=== PATIENT | male | born 1945 | race Caucasian/White ===

== ENCOUNTER → 2017-10-01 09:08 | Outpatient (CLI) | payer MEDICARE, SELFPAY ==
[2017-10-01 10:30] LABS: AST(SGOT) 20 U/L (15-37); Alanine Aminotransfer ALT/SGPT 24 U/L (16-61); Albumin, Serum 3.8 g/dL (3.2-5.0); Alkaline Phosphatase 68 U/L (45-117); Bilirubin, Direct 0.17 mg/dL (0.00-0.30); Cholesterol 151 mg/dL (200); Globulin 3.4 g/dL (2.2-4.2); High Density Lipoprotein 54 mg/dL; Protein, Total 7.2 g/dL (6.4-8.2); Triglycerides 121 mg/dL; Very Low Density Lipoprotein 24 mg/dL (5-40)
[2017-10-01 10:33] LABS: PSA,Total- Diagnostic 4.05 ng/mL (0.0-4.0)
== END ==
PROVIDERS: Family Provider Family Medicine; PCP Family Medicine; Visit Provider Internal Medicine Cardiovascular Disease
DX: E78.5 Hyperlipidemia, unspecified (principal); N42.89 Other specified disorders of prostate; R97.20 Elevated prostate specific antigen [PSA]; Z79.899 Other long term (current) drug therapy
CPT/HCPCS: 36415; 80061; 80076; 84153

== ENCOUNTER → 2018-05-06 08:40 | Outpatient (CLI) | payer MEDICARE, SELFPAY ==
[2018-05-06 10:39] LABS: AST(SGOT) 17 U/L (15-37); Alanine Aminotransfer ALT/SGPT 26 U/L (16-61); Albumin, Serum 3.7 g/dL (3.2-5.0); Alkaline Phosphatase 73 U/L (45-117); Bilirubin, Direct 0.15 mg/dL (0.00-0.30); Cholesterol 198 mg/dL (200); Globulin 3.6 g/dL (2.2-4.2); High Density Lipoprotein 62 mg/dL; Protein, Total 7.3 g/dL (6.4-8.2); Triglycerides 126 mg/dL; Very Low Density Lipoprotein 25 mg/dL (5-40)
--- OUTSIDE RECORDS SUMMARY | 2018-07-01 14:01 | XMS RPT_ITS ---
:1945 Author Organization OHIP Care Team Providers Name Role Phone Lloyd Dumontril Attending Unavailable Julia, [place] Referring Unavailable Dorian Esposito Primary Care Unavailable Silvana Contreras Consulting Unavailable Sara Jiménez Attending Unavailable Ingris Medina Attending Unavailable Dorian Esposito Referring Unavailable Dorian Esposito Primary Care Unavailable Julia, Alen Attending Unavailable Julia, [place] Referring Unavailable Dorian Esposito Primary Care Unavailable PROBLEMS PROBLEMS DATE TYPE CONDITION / CODE ATTENDING STATUS SOURCE 10/08/2017 Unknown I25.10 - Carol, Active [place] Atherosclerotic heart [facility] coronary artery Repository without angina pectoris / I25.10(ICD-10) 10/01/2017 Unknown E78.5 - Alen Dumont Active [place] Hyperlipidemia, Community unspecified / Hospital E78.5(ICD-10) Repository 10/01/2017 Unknown Z79.899 - Other long Julia, Alen Active [place] term (current) drug Community therapy / Hospital Z79.899(ICD-10) Repository PROCEDURES PROCEDURES No Procedure Records FoundRESULTS RESULTS LIVER PROFILE Collected: 05/06/2018 Status: F Source: [place] 8:49 AM [facility] REPOSITORY TYPE CODE TESTS RESULT OUT OF RANGE REFERENCE UNITS LAB L501.1500 6.4-8.2 g/dL Normal T PROT 7.3 LAB L501.1800 3.2-5.0 g/dL Normal ALB 3.7 LAB L501.1950 2.2-4.2 g/dL Normal GLOB 3.6 LAB L501.4100 15-37 U/L Normal AST 17 LAB L501.4305 45-117 U/L Normal ALK P 73 LAB L501.4405 16-61 U/L Normal ALT 26 LAB L501.4600 0.20-1.00 mg/dL Normal T BILI 0.60 LAB L501.4700 0.00-0.30 mg/dL Normal D BILI 0.15 Performed By: #### L500.3400, L500.4100 #### [facility] [address] [place], [place], [address] LIPID PROFILE Collected: 05/06/2018 Status: F Source: [place] 8:49 [facility] REPOSITORY TYPE CODE TESTS RESULT OUT OF RANGE REFERENCE UNITS LAB L501.4900 200 mg/dL Normal CHOL 198 Result Comment: <200 mg/dL Desirable 200-240 mg/dL Borderline >240 mg/dL High Risk LAB L501.5000 mg/dL Normal TRIG 126 Result Comment: The drugs N-Acetylcysteine and Metamizole may falsely depress this assay. Serum Triglycerides Reference Interval Normal <150 mg/dL Borderline high 150 - 199 mg/dL High 200 - 499 mg/dL Very High > or = 500 mg/dL LAB L501.6400 mg/dL Normal HDL 62 Result Comment: The drugs N-Acetylcysteine and Metamizole may falsely depress this assay. Reference Range HDL <40 mg/dL Low HDL Cholesterol HDL >or= 60 mg/dL High HDL Cholesterol LAB L501.6500 0-130 mg/dL Normal LDL 111 LAB L501.6600 5-40 mg/dL Normal VLDL 25 Performed By: #### L500.3400, L500.4100 #### [facility] [address] [place], [address] CARDIOLOGY VISIT Observed: 10/08/2017 Status: F Source: [place] REPORT 4:16 PM [facility] REPOSITORY [place] [facility] [address] [place] [address] OFFICE VISIT Date of Service: 10/08/17 MR#: [id number] Acct: [id number] Name: RAKESH TAVAREZ Rep #: [id number] : 1945 Provider: Ingris Medina Age/Sex: 72/M Location: [facility] Status: Signed HPI HPI Details: RAKESH TAVAREZ, is a 72 M who presents to the office today for a cardiovascular follow-up. He has a history of coronary artery disease with stenting to his LAD and RCA. He also has a history of frequent asymptomatic PVCs which compromised 28% of his scan. He did follow with EP for this. He did have an EP study and no significant findings were noted. EKG today demonstrates sinus rhythm with a heart rate of 65. From a cardiac standpoint, patient is doing well. He does not have any chest discomfort/heaviness/tightness. His exercise tolerance is stable for his age. He does not have any worsening symptoms of shortness of breath. He denies any PND. He does not have any orthopnea. He does not have any symptoms of congestive heart failure. He does not have any palpitations that he is aware of. He does not have any lightheadedness or dizziness. He does not have any near-syncope or syncope. He does not have any lower extremity edema. He does not have any symptoms of claudication. Intake Vital Signs10/08/17 Height 5 ft 9 in 10/08/17 Weight: 225 lb 10/08/17 Body Mass Index (BMI) 33.2 10/08/17 Blood Pressure 138/70 Intake Visit Reasons: 6 M FU Box Feeder Required: No Accompanied by: Is patient in pain?: No Allergies atorvastatin [From Lipitor] Adverse Reaction (Intermediate, Verified 10/01/17 12:30) Myalgias Medications amlodipine 10 mg tablet 10 mg PO QDAY #90 tab 07/15/17 [Rx Confirmed 10/08/17] losartan 100 mg tablet 100 mg PO QDAY #90 tab 07/15/17 [Rx Confirmed 10/08/17] rosuvastatin 20 mg tablet 20 mg PO QDAY #90 tab 08/13/17 [Rx Confirmed 10/08/17] aspirin 81 mg tablet,delayed release 81 mg PO QDAY 10/01/17 [History Confirmed 10/08/17] nitroglycerin 0.4 mg sublingual tablet 0.4 mg SUBLINGUAL Q5M PRN 10/01/17 [History Confirmed 10/08/17] saw palmetto 1,000 mg capsule 1,000 mg PO BID 10/01/17 [History Confirmed 10/08/17] glucosamine sulfate 500 mg tablet 500 mg PO BID 10/08/17 [History Confirmed 10/08/17] magnesium oxide 400 mg capsule 400 mg PO QDAY cap 10/08/17 [History Confirmed 10/08/17] omega-3 fatty acids 1,000 mg capsule 1,000 mg PO QDAY 10/08/17 [History Confirmed 10/08/17] pyridoxine (vitamin B6) 50 mg capsule 50 mg PO QDAY 10/08/17 [History Confirmed 10/08/17] Ejection fraction %: 55 to 59 PFSH Medical History Hypertension (Chronic) Ventricular ectopic beat (Chronic) Mild pulmonary hypertension (Chronic) Nonrheumatic mitral valve insufficiency (Chronic) Non-rheumatic tricuspid valve insufficiency (Chronic) Old myocardial infarction (Chronic) Atherosclerotic heart disease of [place] coronary artery without angina pectoris (Chronic) Hyperlipidemia (Chronic) Surgical History H/O repair of rotator cuff (Resolved) H/O hernia repair (Resolved) H/O right coronary artery stent placement (Resolved) Family History Father CAD (coronary artery disease) Mother CAD (coronary artery disease) Social History Smoking Status: Never smoker alcohol intake: never substance use type: does not use caffeine: Yes Type: coffee Number of servings: 1 what type of physical activity do you participate in: other seatbelt use: always do you feel safe at home: Yes ROS Const Const: Negative for weakness, fatigue, fever(s) or headache(s) Eyes Eyes: Negative for blind spots, loss of peripheral vision or transient loss of vision ENT ENT: Negative for headache(s), dizziness, tinnitus or Nosebleed/epistaxis Cardio Chest Pain: No Palpitations: No Edema: None Muscle aches with walking: None Resp Respiratory: Negative for SOB with activity, SOB at rest, SOB orthopnea\SOB lying down or Cough GI GI: Negative nausea, vomiting, heartburn or vomiting blood/hematemesis : Negative for hematuria Musc Musc: Negative for muscle aches/ myalgia Neuro Neuro: Negative for weakness, headache(s), dizziness, near syncope, syncope, lightheadedness or orthostatic symptoms [place] Hematologic/Lymphatic: Negative for easy bleeding Endo Endo: Negative for fatigue Cardiology Exam Const Appearance: cooperative, no acute distress and well developed Orientation: alert, awake and oriented x3 Head Head: normocephalic and atraumatic Mouth: moist mucous membranes Eyes General: appearance normal, both eyes and all related structures Conjunctivae: conjunctivae normal Pupils: PERRL EOM: EOM intact bilaterally Neck Neck: normal visual inspection, no lymphadenopathy and no JVD Carotids: Negative bruit Neck Mass: Negative Neck mass Chest Chest inspection: normal inspection of the chest and symmetric chest movement Auscultation: Bilateral: Clear to Auscultation Cardio Palpation: normal PMI Rate: regular rate Rhythm: regular rhythm Heart sounds: S1 normal and S2 normal; negative rub, gallop or murmur GI GI: normal to inspection, soft, no hepatosplenomegaly and bowel sounds present; negative tender Neuro General: alert, awake, oriented x3, CN's II-XI intact bilaterally and moves all extremities Extremities Pulses: Normal: Right Posterior Tibial Pulse, Left Posterior Tibial Pulse, Right Radial Pulse, Left Radial Pulse Lower Extremity Edema: None: Bilateral Psych Psychological: normal affect Supplemental Info Echocardiogram in 2017 demonstrated an ejection fraction of 55%. Mild tricuspid insufficiency. Trivial aortic insufficiency. Stress test in 2016 was negative for ischemia at a high workload. Assessment AND Plan 1. Atherosclerosis of [place] coronary artery of [place] heart without angina pectoris I25.10 BUD Grant Stable, from a cardiac standpoint patient does not have any symptoms of angina. We recommend that they continue with current aggressive medical management and risk factor modification. Orders Orders: 2. Essential hypertension I10 Sudha - BUD Jerez Blood pressure is well controlled on current medications, we do not recommend any changes at this time. 3. Pure hypercholesterolemia E78.00; E78.0 Plan - BUD Jerez Recent lipid profile demonstrates total cholesterol 151, HDL 54, LDL 73. Will continue to monitor with routine labs. Will not make any adjustments. Patient Instructions - BUD Jerez Laboratory Tests Triglycerides 121 Cholesterol 151 LDL Cholesterol 73 HDL Cholesterol 54 4. Ventricular ectopic beat I49.3 Plan - BUD Jerez Patient has not had any symptomatic recurrence. We will continue to monitor. Plan Detail Additional Comments - BUD Jerez The above patient was discussed with Dr. Dumont, he agrees with plan of care. Thank you for allowing us to participate in patient's plan of care, if you have any questions please do not hesitate to call. This note was generated using a voice recognition system and there may be incorrect words, spelling or punctuation errors that were not noted when reviewing the office note prior to saving. 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 transplanted heart: [place] heart Essential hypertension I10 Hypertension type: essential hypertension Pure hypercholesterolemia E78.00; E78.0 Hyperlipidemia type: pure hypercholesterolemia Ventricular ectopic beat I49.3 Coding Level of Care Code Off vis,est,level 3 Diagnoses Atherosclerosis of [place] coronary artery of [place] heart without angina pectoris I25.10 [place] vs. transplanted heart: [place] heart Essential hypertension I10 Hypertension type: essential hypertension Pure hypercholesterolemia E78.00; E78.0 Hyperlipidemia type: pure hypercholesterolemia Ventricular ectopic beat I49.3 10/08/17 1406 <Electronically signed by Ingris FARRELL> Date Ingris FARRELL 10/08/17 1616<Electronically signed by Alen Dumont MD> Cosigner Signature: Date (if applicable) Alen Dumont MD CC: Dorian Esposito MD 12 LEAD EKG PERFORMED Observed: 10/08/2017 Status: F Source: [place] BY [facility] 11:23 AM [facility] REPOSITORY [facility] [address] [place] [address] 12 Lead EKG performed by [facility] 10/08/171121 MR#: [id number] Acct: [id number] Name: RAKESH TAVAREZ Rep #: [id number] : 1945 72 From: Ingris FARRELL Attending Dr: Ingris Medina Status: DEP AMB Ordering Dr: Ingris Medina Date: 10/08/17 [place] [facility] Sex: M C Admitted: [facility]/12 Lead EKG performed by [facility] ECG Report Interpretation Sinus Rhythm WITHIN NORMAL LIMITSElectronically signed on 10/09/2017 at 17:11 by Alen Dumont 10/09/17 1715 Date Ingris FARRELL CC: Dorian Esposito MD Date Dictated: 10/08/171121 Date Transcribed: 10/08/171121 In Home Tutor: JOSE Signed LIVER PROFILE Collected: 10/01/2017 Status: F Source: [place] 9:18 AM [facility] REPOSITORY Order Comment: Order Date: 03/08/17 Order Info: 0788-1 - *Hepatic Function Panel Order Info: [id number] - *Lipid Profile CC PCP Comments: 12 hours fasting, may have water. TYPE CODE TESTS RESULT OUT OF RANGE REFERENCE UNITS LAB L501.1500 6.4-8.2 g/dL Normal T PROT 7.2 LAB L501.1800 3.2-5.0 g/dL Normal ALB 3.8 LAB L501.1950 2.2-4.2 g/dL Normal GLOB 3.4 LAB L501.4100 15-37 U/L Normal AST 20 LAB L501.4305 45-117 U/L Normal ALK P 68 LAB L501.4405 16-61 U/L Normal ALT 24 LAB L501.4600 0.20-1.00 mg/dL Normal T BILI 1.00 LAB L501.4700 0.00-0.30 mg/dL Normal D BILI 0.17 Performed By: #### L500.3400 #### [facility] [address] [place], [address] LIPID PROFILE Collected: 10/01/2017 Status: F Source: [place] 9:18 AM [facility] REPOSITORY Order Comment: Order Date: 03/08/17 Order Info: 0788-1 - *Hepatic Function Panel Order Info: [id number] - *Lipid Profile CC PCP Comments: 12 hours fasting, may have water. TYPE CODE TESTS RESULT OUT OF RANGE REFERENCE UNITS LAB L501.4900 200 mg/dL Normal CHOL 151 Result Comment: <200 mg/dL Desirable 200-240 mg/dL Borderline >240 mg/dL High Risk LAB L501.5000 mg/dL Normal TRIG 121 Result Comment: The drugs N-Acetylcysteine and Metamizole may falsely depress this assay. Serum Triglycerides Reference Interval Normal <150 mg/dL Borderline high 150 - 199 mg/dL High 200 - 499 mg/dL Very High > or = 500 mg/dL LAB L501.6400 mg/dL Normal HDL 54 Result Comment: The drugs N-Acetylcysteine and Metamizole may falsely depress this assay. Reference Range HDL <40 mg/dL Low HDL Cholesterol HDL >or= 60 mg/dL High HDL Cholesterol LAB L501.6500 0-130 mg/dL Normal LDL 73 LAB L501.6600 5-40 mg/dL Normal VLDL 24 Performed By: #### L500.4100 #### [facility] [address] [place], [address] PSA,TOTAL- DIAGNOSTIC Collected: 10/01/2017 Status: F Source: [place] 9:18 AM [facility] REPOSITORY Order Comment: Order Date: 06/30/17 Order Info: [id number] - PSAD TYPE CODE TESTS RESULT OUT OF REFERENCE UNITS RANGE LAB L501.9940 0.0-4.0 ng/mL PSA, High DIAGNOSTIC 4.05 Result Comment: This test was performed using the TPSA assay method for the [employer] chemistry system. Values obtained with different assay methods cannot be used interchangably. When changing PSA assays in the course of monitoring a patient, additional sequential testing should be carried out to confirm baseline values. Performed By: #### L501.9940 #### [facility] [address] [place], [address] ALLERGIES ALLERGIES DATE TYPE / CODE NAME / CODE REACTION SEVERITY SOURCE 10/01/2017 Drug atorvastatin [place] [facility] Allergy/4160 /[id number]( Hospital 57238(SNOMED RXNORM) Repository CT) ENCOUNTERS ENCOUNTERS ADMIT/DISCHARGE ACCOUNT ADMITTING ENCOUNTER LOCATION SOURCE NUMBER CLASS 05/06/2018 [id number] Ambulatory [facility] 1 [facility] ing:MTLAB Repository 10/08/2017/ [id number] Ambulatory BMSBuilding:B [place] 8 8 [place].[facility] Repository 10/01/2017 [id number] Ambulatory BMS [address] Repository 10/01/2017 [id number] Ambulatory [address] ing:MTLAB Repository PAYERS PAYERS ENCOUNTER GUARANTOR PAYER SUBSCRIBER SOURCE 05/06/2018 RAKESH Rojas [id number] [place] Insurance:HUMANA REAMDOB: Community [place], MEDICARE PPOPolicy [id number] [address]Tlf: Number: Repository [id number] (HP) Date:9146-14-71[address] [phone]: 05/06/2018 Secondary NOT GIVENUNK [place] Insurance:SELF PAY [facility] Number: Effective Repository Date:2018-05-06 10/08/2017 RAKESH Chris Primary RAKESH [place] [id number] [place] Insurance:HUMANA REAMDOB: Community [place]olicy [id number]: Repository [id number]: [phone] [id number] [phone] (HP) Date:5623-20-65ZI [address] [place] [phone]: 10/08/2017 Secondary NOT GIVENUNK [place] Insurance:SELF PAY [facility] Number: Effective Repository Date:2017-05-19 10/01/2017 Rakesh Chris Primary Rakesh Rojas [id number] [place] Insurance:HUMANA ReamDOB: [facility], MEDICARE PPOPolicy [id number] [address]Tel: Number: Repository [id number] (HP) Date:9281-09-32DH [address] [place] [phone]: 10/01/2017 Secondary NOT GIVENUNK [place] Insurance:SELF PAY [facility] Number: Effective Repository Date:2017-10-01 10/01/2017 Rakesh Chris Primary Rakesh Rojas [id number] [place] Insurance:HUMANA ReamDOB: [place], [place] PPOPolicy [id number] [address]Tel: Number: Repository [id number] (HP) Date:5083-35-97HO [address] [place] [phone]: 10/01/2017 Secondary NOT GIVENUNK [place] Insurance:SELF PAY [facility] Number: Effective Repository Date:2017-10-01
== END ==
PROVIDERS: Family Provider Family Medicine; PCP Family Medicine; Referring Provider Internal Medicine Cardiovascular Disease; Visit Provider Internal Medicine Cardiovascular Disease
DX: E78.5 Hyperlipidemia, unspecified (principal)
CPT/HCPCS: 36415; 80061; 80076

== ENCOUNTER → 2018-11-19 08:55 | Outpatient (CLI) | payer MEDICARE, SELFPAY ==
[2018-06-25 13:16] VITALS: BMI 32.3
[2018-11-19 10:25] LABS: AST(SGOT) 21 U/L (15-37); Alanine Aminotransfer ALT/SGPT 25 U/L (16-61); Alkaline Phosphatase 63 U/L (45-117); Cholesterol 160 mg/dL (200); Globulin 3.2 g/dL (2.2-4.2); High Density Lipoprotein 56 mg/dL; Protein, Total 7.2 g/dL (6.4-8.2); Triglycerides 106 mg/dL; Very Low Density Lipoprotein 21 mg/dL (5-40)
== END ==
PROVIDERS: Family Provider Family Medicine; PCP Family Medicine; Referring Provider Internal Medicine Cardiovascular Disease; Visit Provider Internal Medicine Cardiovascular Disease
DX: E78.5 Hyperlipidemia, unspecified (principal)
CPT/HCPCS: 36415; 80061; 80076

== ENCOUNTER → 2018-11-20 10:08 | Outpatient (CLI) | payer MEDICARE, SELFPAY ==
[2018-06-25 13:16] VITALS: BMI 32.3
--- NOTE | 2018-11-20 10:11 | RAD_ITS ---
HISTORY:right hip pain right hip pain COMPARISON: None FINDINGS: # of images incl. paperwork: 3 XR Hip Unilateral with Pelvis when performed; 2-3 Views: Right BONE AND JOINTS: No acute fracture or subluxation. Enthesophytes are seen at the iliac crest bilaterally. Mild right convexity scoliosis and lumbar spine with degenerative change SOFT TISSUES: Unremarkable. No radiopaque foreign body. RAD/HIP, UNI W/ Pelvis 2-3 Views IMPRESSION: No acute pathology If symptoms persist consider mri for further evaluation if clinically indicated. at 2100 Reported and signed by: Tiffany Jacobs DO Electronically Signed: Tiffany Jacobs DO at 20:59 EDT Tel , Service support ,
== END ==
PROVIDERS: Family Provider Family Medicine; PCP Family Medicine; Referring Provider Family Medicine; Visit Provider Family Medicine
DX: M25.551 Pain in right hip (principal)
CPT/HCPCS: 73502

== ENCOUNTER → 2020-04-07 09:25 | Outpatient (CLI) | payer MEDICARE, SELFPAY ==
[2020-03-17 15:11] VITALS: BMI 32.1
[2020-04-07 10:29] LABS: Hematocrit 44.3 % (40-54); Hemoglobin 14.7 g/dL (13.0-16.5); Mean Corp Hgb Conc 33.2 g/dL (32-36); Mean Corpuscular Hgb 30.1 pg (27.0-32.0); Mean Corpuscular Volume 90.6 fL (80-94); Mean Platelet Vol. 10.3 fl (6.2-12.0); Platelet Count 201 K/mm3 (150-450); RBC Distribution Width SD 42.7 fl (35.1-43.9); Red Blood Count 4.89 M/mm3 (4.6-6.2)
[2020-04-07 11:01] LABS: Anion Gap 8 (5-15); BUN 24 mg/dL (7-18); BUN/Creat Ratio 27.3 RATIO (10-20); Chloride 110 mmol/L (98-107); Creatinine, Serum 0.88 mg/dL (0.70-1.30); EST Glomerular Filtration Rate 90 mL/min (>60); Est Glom Filt Rate - Afr Amer 109 mL/min (>60); Glucose 99 mg/dL (74-106); Potassium 4.3 mmol/L (3.5-5.1); Sodium Level 141 mmol/L (136-145)
--- NOTE | 2020-04-07 12:32 | EKG12_ITS ---
Test Reason : PRE OP Blood Pressure : / mmHG Vent. Rate : 093 BPM Atrial Rate : 093 BPM P-R Int : 208 ms QRS Dur : 096 ms QT Int : 346 ms P-R-T Axes : 036 -28 047 degrees QTc Int : 430 ms Normal sinus rhythm Leftward axis Confirmed by LUDY ARRIETA, JUAN CARLOS ([id number]), material expeditor ROMULO GUERRA ([id number]) on 04/12/2020 9:38:49 AM Referred By: Sundar Ramos Confirmed By:JUAN CARLOS BOSTON MD
== END ==
LOC: LAB.FUTURE 09:27 → LAB 09:28
PROVIDERS: PCP Family Medicine; Referring Provider Urology; Visit Provider Urology
DX: Z01.812 Encounter for preprocedural laboratory examination (principal); Z20.828 Contact with and (suspected) exposure to other viral communicable diseases; I10 Essential (primary) hypertension
CPT/HCPCS: 36415; 80048; 85027; 87635; 93005; C9803; U0003

== ENCOUNTER → 2021-02-21 | Outpatient (CLI) | payer MEDICARE, SELFPAY | END | disposition home or self-care (01) | LOC: LABSPEC 15:51 | PROVIDERS: PCP Family Medicine; Visit Provider Physician Assistant | DX: U07.1 COVID-19 (principal) | CPT/HCPCS: 87635; U0005; U0003 ==

== ENCOUNTER → 2021-03-02 09:00 | Outpatient (CLI) | payer MEDICARE, SELFPAY ==
[2021-03-02 12:10] LABS: Absolute Lymphocyte Count 1.05 X10^3/uL (0.83-4.51); Absolute Neutrophil Count 4.3 X10^3/uL (2.0-7.7); Basophil# 0.02 X10^3/uL; Basophil% 0.3 % (0-1); Eosinophil# 0.08 X10^3/uL; Eosinophils% 1.2 % (0-5); Hematocrit 39.3 % (40-54); Hemoglobin 13.2 g/dL (13.0-16.5); Lymphocyte # 1.05 X10^3/ul (0.83-4.51); Lymphocyte % 16.3 % (19-41); Mean Corp Hgb Conc 33.6 g/dL (32-36); Mean Corpuscular Hgb 29.4 pg (27.0-32.0); Mean Corpuscular Volume 87.5 fL (80-94); Monocyte# 0.87 X10^3/uL; Monocyte% 13.5 % (0-10); NRBC Flagged by Analyzer 0 % (0-5); Neutrophil # 4.34 X10^3/uL (2.7-7.7); Neutrophil % 67.6 % (47-70); Platelet Count 331 K/mm3 (150-450); RBC Distribution Width CV 13.1 % (11.6-14.6); RBC Distribution Width SD 41.4 fl (35.1-43.9); Red Blood Count 4.49 M/mm3 (4.6-6.2); White Blood Count 6.4 K/mm3 (4.4-11.0)
[2021-03-02 12:23] LABS: ALB/GLOB Ratio 0.7 RATIO (0.9-2.4); AST(SGOT) 33 U/L (15-37); Alanine Aminotransfer ALT/SGPT 43 U/L (16-61); Alkaline Phosphatase 86 U/L (45-117); Anion Gap 6 (5-15); BUN 22 mg/dL (7-18); BUN/Creat Ratio 32.3 RATIO (10-20); Calcium,Total 9.2 mg/dL (8.5-10.1); Chloride 110 mmol/L (98-107); Cholesterol 134 mg/dL (200); Creatinine, Serum 0.68 mg/dL (0.70-1.30); EST Glomerular Filtration Rate 120 mL/min (>60); Est Glom Filt Rate - Afr Amer 145 mL/min (>60); Globulin 4.2 g/dL (2.2-4.2); Glucose 105 mg/dL (74-106); High Density Lipoprotein 40 mg/dL; Potassium 3.2 mmol/L (3.5-5.1); Protein, Total 7.2 g/dL (6.4-8.2); Sodium Level 142 mmol/L (136-145); Triglycerides 174 mg/dL; Very Low Density Lipoprotein 35 mg/dL (5-40)
[2021-03-02 12:32] LABS: Vitamin D,25 Hydroxy 28.2 ng/mL
[2021-03-02 12:39] LABS: BNP,B-Type NATRIURETIC PEPTIDE 88.9 pg/mL (0-100)
[2021-03-02 15:32] LABS: Color, Urine Yellow (Yellow); Glucose, Dipstick Normal (Normal); Ketone-Dipstick Negative (Negative); Leukocyte Esterase-Dipstick Negative /ul (Negative); Nitrite-Dipstick Negative (Negative); Occult Blood-Urine Negative /ul (Negative); Protein-Dipstick 15 mg/dl (Negative); Urine Bilirubin Dipstick Negative (Negative); Urine Clarity Sl. Cloudy (Clear); Urine Urobilinogen 1 mg/dl (Normal)
[2021-03-05 13:30] LABS: Red Blood Cell Count Test/G6PD 4.65 x10E6/uL (3.77-5.28)
[2021-03-05 13:57] LABS: G6PD Quant Test 234 (127-427)
== END ==
PROVIDERS: PCP Family Medicine; Referring Provider Nurse Practitioner Family; Visit Provider Nurse Practitioner Family
DX: R53.82 Chronic fatigue, unspecified (principal); M62.81 Muscle weakness (generalized); E66.9 Obesity, unspecified
CPT/HCPCS: 36415; 80053; 80061; 81002; 82306; 82955; 83880; 85025

== ENCOUNTER → 2021-06-05 08:23 | Outpatient (CLI) | payer MEDICARE, SELFPAY ==
[2021-06-05 09:49] LABS: Absolute Lymphocyte Count 1.56 X10^3/uL (0.83-4.51); Absolute Neutrophil Count 2.7 X10^3/uL (2.0-7.7); Basophil# 0.02 X10^3/uL; Basophil% 0.4 % (0-1); Eosinophils% 3.9 % (0-5); Hematocrit 44.7 % (40-54); Hemoglobin 14.7 g/dL (13.0-16.5); Lymphocyte # 1.56 X10^3/ul (0.83-4.51); Lymphocyte % 30.3 % (19-41); Mean Corp Hgb Conc 32.9 g/dL (32-36); Mean Corpuscular Hgb 29.4 pg (27.0-32.0); Mean Corpuscular Volume 89.4 fL (80-94); Mean Platelet Vol. 10.3 fl (6.2-12.0); Monocyte# 0.65 X10^3/uL; Monocyte% 12.6 % (0-10); NRBC Flagged by Analyzer 0 % (0-5); Neutrophil % 52.4 % (47-70); Platelet Count 186 K/mm3 (150-450); RBC Distribution Width CV 13.4 % (11.6-14.6); RBC Distribution Width SD 43.8 fl (35.1-43.9); White Blood Count 5.2 K/mm3 (4.4-11.0)
[2021-06-05 10:09] LABS: ALB/GLOB Ratio 1.1 RATIO (0.9-2.4); AST(SGOT) 23 U/L (15-37); Alanine Aminotransfer ALT/SGPT 37 U/L (16-61); Albumin, Serum 3.7 g/dL (3.2-5.0); Alkaline Phosphatase 76 U/L (45-117); Anion Gap 7 (5-15); BUN 22 mg/dL (7-18); BUN/Creat Ratio 31.7 RATIO (10-20); Calcium,Total 8.9 mg/dL (8.5-10.1); Chloride 108 mmol/L (98-107); Cholesterol 104 mg/dL (200); Creatinine, Serum 0.69 mg/dL (0.70-1.30); EST Glomerular Filtration Rate 118 mL/min (>60); Est Glom Filt Rate - Afr Amer 142 mL/min (>60); Globulin 3.4 g/dL (2.2-4.2); Glucose 95 mg/dL (74-106); High Density Lipoprotein 39 mg/dL; Potassium 3.9 mmol/L (3.5-5.1); Protein, Total 7.1 g/dL (6.4-8.2); Sodium Level 141 mmol/L (136-145); Triglycerides 131 mg/dL; Very Low Density Lipoprotein 26 mg/dL (5-40)
== END ==
PROVIDERS: PCP Family Medicine; Referring Provider Family Medicine; Visit Provider Family Medicine
DX: I25.10 Atherosclerotic heart disease of native coronary artery without angina pectoris (principal); L29.9 Pruritus, unspecified; N40.0 Benign prostatic hyperplasia without lower urinary tract symptoms
CPT/HCPCS: 36415; 80053; 80061; 82140; 84153; 85025

== ENCOUNTER 2021-08-20 13:48 | Emergency (ER) | payer MEDICARE, SELFPAY ==
[2021-08-20 13:49] VITALS: BP 166/79; PULSE 112; RESP 18; TEMP 36.6; O2SAT 98; BMI 31.0
--- NOTE | 2021-08-20 14:45 | EX.ED.GENINJ ---
HPI History of Present Illness Chief Complaint: Laceration Informant: patient Onset/Context/Timing Onset: Today Location of pain/injuries: Left thigh Current Severity: Mild Maximum Severity: Mild Narrative Narrative: Patient presents secondary to laceration to left thigh. Patient was cutting down trees. He states he was moving to get out of the way of one of the trees that was falling and caught his left thigh on the chainsaw. He has a laceration to the left thigh. He is unsure of his last tetanus update. He takes baby aspirin but no other blood thinners. [facility] Medical History Atherosclerotic heart disease of [place] coronary artery without angina pectoris COVID-19 virus detected (02/21/21) Essential (primary) hypertension History of non-ST elevation myocardial infarction (NSTEMI) (04/24/09) Hyperlipidemia Multiple premature ventricular complexes Home Medications aspirin 81 mg tablet,delayed release 81 mg PO QDAY 10/01/17 [History Last Taken Unknown] losartan 100 mg tablet 50 mg PO QDAY #90 tab 04/27/21 [Rx Last Taken Unknown] cholesterol gold PO 06/28/21 [History Last Taken Unknown] multivitamin 1 tab PO DAILY 06/28/21 [History Last Taken Unknown] sildenafil 100 mg tablet 100 mg PO DAILY PRN 06/28/21 [History Last Taken Unknown] triamcinolone acetonide 0.1 % topical cream 1 applic TOPICAL DAILY PRN 06/28/21 [History Last Taken Unknown] amlodipine 10 mg tablet 10 mg PO DAILY #90 tab 07/26/21 [Rx Last Taken Unknown] rosuvastatin 20 mg tablet 20 mg PO QDAY #90 tab 07/26/21 [Rx Last Taken Unknown] Allergy/AdvReac Type Severity Reaction Status Date / Time lisinopril Allergy Unknown cough Verified 08/20/21 13:51 atorvastatin [From Lipitor] AdvReac Intermediate Myalgias Verified 08/20/21 13:51 Family History Father CAD (coronary artery disease) Mother CAD (coronary artery disease) Surgical History H/O hernia repair H/O repair of rotator cuff History of circumcision (04/2020) History of coronary artery stent placement (04/24/09) History of electrophysiologic study (09/22/12) History of left heart catheterization (07/14/12) Social History Smoking Status: Never smoker alcohol intake: never substance use type: does not use caffeine: Yes Type: coffee Number of servings: 1 what type of physical activity do you participate in: other seatbelt use: always do you feel safe at home: Yes ROS ROS ED Constitutional Constitutional ED: Denies chills or fever(s) Eyes Eyes: Denies change in vision ENT ENT ED: Denies sore throat Cardiovascular Cardiovascular: Denies chest pain Respiratory/Chest Respiratory/Chest: Denies cough or dyspnea Gastrointestinal Gastrointestinal: Denies abdominal pain, nausea or vomiting Genitourinary Genitourinary ED: Denies dysuria Musculoskeletal Musculoskeletal: Reports arthralgias; Denies back pain Integumentary Reports other Details: Left thigh laceration ; Denies rash Neurologic Neurologic: Denies headache(s) or weakness Allergic/Immunologic Allergic/Immunologic ED: Denies urticaria EXAM Physical Exam Const Vital Signs: 08/20/21 13:49 Temperature 97.9 F Temperature Source Temporal Pulse Rate 112 H Respiratory Rate 18 Blood Pressure 166/79 H Blood Pressure Mean 108 Pulse Ox 98 Oxygen Delivery Method Room Air Positive well nourished and well developed General Appearance ED: well developed HEENT atraumatic Eyes PERRL and EOMs intact bilaterally Neck full ROM Chest Wall inspection of chest normal and palpation of chest normal Resp normal respiratory effort and clear to auscultation bilaterally Cardio regular rhythm Rate: regular rate GI non-tender Palpation: soft Extremity Extremity Narrative: 4 cm irregular shaped laceration to the left anterolateral thigh. Minimal bleeding noted at this time. Strong distal pulses with full range of motion. Neuro oriented x3, moves all extremities, no focal motor deficits and no sensory deficits noted Sensorium / Orientation: alert Psych mental status grossly normal Skin Skin Narrative: Left leg laceration as noted above. PROC Procedures Lacerations Left thigh laceration: Length: 1.57 in Depth: Sub Q Shape: Irregular Prep: Shure-Clens Laceration repair: Irrigated, Lidocaine and Local Number of Sutures/Viktoria: 8 Suture Information: Ethilon, Simple and 4-0 Comment: Wound anesthetized with 6 cc of 1% lidocaine. Wound thoroughly cleansed and irrigated. Wound explored. Skin closed with 8 simple interrupted sutures of 4-0 nylon. MDM MDM MDM Narrative Medical decision making narrative: Tetanus update provided. Left eye laceration sutured. Please see procedure note for details. Treatment and Re-Evaluation Narrative: Wound care discussed. Patient to have sutures removed in 1 week. Discharge Plan Triage Chief Complaint: Laceration ED Provider: Marissa Prince Dx/Rx/DC Orders Clinical Impression: Laceration of left thigh Instructions: ED Laceration: All Closures Prescriptions: No Action aspirin [Adult Low Dose Aspirin] 81 mg tablet,delayed release (DR/EC) 81 mg PO QDAY RF: 0 sildenafil 100 mg tablet 100 mg PO DAILY PRNRF: 0 triamcinolone acetonide 0.1 % cream 1 applic topical DAILY PRNRF: 0 multivitamin Tablet 1 tab PO DAILY RF: 0 cholesterol gold PO RF: 0 losartan 100 mg tablet 50 mg PO QDAY Qty: 90 RF: 3 rosuvastatin [Crestor] 20 mg tablet 20 mg PO QDAY Qty: 90 RF: 3 amlodipine 10 mg tablet 10 mg PO DAILY Qty: 90 RF: 3 Primary Care Provider: Dorian Esposito Referrals: Dorian Esposito MD [Primary Care Provider] - 7 Days for suture removal Disposition Disposition: Home, Self Care
[2021-08-20] MEDS: Diphth,Pertuss(Acell),Tet Vac 0.5 ML Vial IM (14:55)
[2021-08-20] MEDS: Lidocaine 1% (20 ml mdv) 20 ML Vial INFILT (14:57)
== END 2021-08-20 15:22 | disposition home or self-care (01) ==
PROVIDERS: Emergency Provider Emergency Medicine; PCP Family Medicine; Visit Provider Emergency Medicine
DX: S71.112A Laceration without foreign body, left thigh, initial encounter (principal); W29.3XXA Contact with powered garden and outdoor hand tools and machinery, initial encounter; Z23 Encounter for immunization; I25.10 Atherosclerotic heart disease of native coronary artery without angina pectoris; I10 Essential (primary) hypertension; E78.5 Hyperlipidemia, unspecified; Z79.82 Long term (current) use of aspirin; Z79.899 Other long term (current) drug therapy; I25.2 Old myocardial infarction; Z86.16 Personal history of COVID-19; Z95.5 Presence of coronary angioplasty implant and graft
CPT/HCPCS: 12002; 90715; 99283